=== PATIENT | male | born 1980 | race Caucasian/White ===

== ENCOUNTER 2023-11-13 17:29 | Emergency (ER) | payer MEDICAID ==
[~2023-11-13] VITALS: Ht 162.6 cm; Wt 105.0 kg
[2023-11-13 17:32] VITALS: TEMP 98.5; O2SAT 98
[2023-11-13] MEDS: IBUPROFEN 600MG TABLET PO ONE (19:20)
[2023-11-13] MEDS: IBUPROFEN 600MG TABLET ONE (19:28)
[2023-11-13] MEDS: CLONIDINE 0.1MG TABLET PO ONE (19:41)
[2023-11-13 20:14] LABS: BASOPHILS % 0.3 % (0.0-2.0); EOSINOPHILS % 1.7 % (0.0-5.0); HEMATOCRIT. 44.8 % (42.0-52.0); HEMOGLOBIN. 15.7 g/dL (14.0-18.0); LYMPHOCYTES % 41.3 % (20.0-50.0); MEAN CORPUSCULAR HEMOGLOBIN 30.8 pg (28.0-32.0); MEAN PLATELET VOLUME 7.6 fl (7.4-10.4); NEUTROPHILS % 49.7 % (40.0-76.0); PLATELET 310 x1000/uL (130-400); RED BLOOD CELL COUNT 5.09 mill/uL (4.7-6.1); RED CELL DISTRIBUTION WIDTH 14.1 % (11.6-14.6); WHITE BLOOD COUNT 10.5 x1000/uL (4.5-11.0)
[2023-11-13 20:28] LABS: ALANINE AMINOTRANSFERASE 33 IU/L (10-49); ALBUMIN 4.8 g/dL (3.2-4.8); ASPARTATE AMINOTRANSFERASE 25 IU/L (<34); BILIRUBIN TOTAL 0.4 mg/dL (0.1-1.0); CALCIUM 9.1 mg/dL (8.7-10.4); CARBON DIOXIDE 28 mEq/L (21-32); CHLORIDE 106 mEq/L (98-107); CREATININE 0.9 mg/dL (0.6-1.3); GLUCOSE 93 mg/dL (70-105); POTASSIUM 3.9 mEq/L (3.5-5.1); PROTEIN TOTAL 7.7 g/dL (6.0-8.3); SODIUM 139 mEq/L (136-145); TROPONIN I HIGH SENSITIVITY 5 ng/L (3.0-53); UREA NITROGEN BLOOD 17 mg/dL (9-23)
[2023-11-13 21:09] VITALS: BP 193/125; PULSE 71; RESP 14
[2023-11-13] MEDS ORDERED: CLONIDINE 0.2MG TABLET PO ONE (21:30)
[2023-11-13] MEDS ORDERED: AMLO5TAB88 MT (21:30)
== END 2023-11-13 21:36 | disposition left against medical advice (07) ==
LOC: ER 17:29
DX: I16.1 Hypertensive emergency (principal); I10 Essential (primary) hypertension; Z88.0 Allergy status to penicillin
CPT/HCPCS: 36415; 71045; 80053; 84484; 85025; 99284